=== PATIENT | male | born 1955 | race Caucasian/White ===

== ENCOUNTER → 2018-09-09 | Outpatient (CLI) | payer OTHER ==
[~2018-09-09] MED LIST: 8 HOUR650 MG PO; ACCUPRIL40 MG PO; ACTOS 30 MG TAB30 MG OR; ASPIR 8181 MG PO; BYSTOLIC 5 MG5 M1 PO; COLACE100 MG PO; CRESTOR10 MG OR; FERREX 150 FOR1 EAC1 PO; FISH OIL 1,001000 M2 PO; FISHOIL OR; GLIPIZIDE ER10 MG PO; GLUCOPHAGE500 MG PO; HYDROCODON-ACE1 EAC7 PO; LANTUS100 UNIT/M SUBQ; MAGOX 400400 MG PO; MIRALAX255 GM PO; MULTIVITAMINS OR; NOVOLOG FL100 UNIT/M SUBQ; PACERONE 200 M200 M1 PO; PRILOSEC OTC20 MG PO; PROTONIX40 M2 PO; SIMVASTATIN40 MG PO
--- NOTE | 2018-09-09 11:23 | EXE ---
[facility] [employer] [place] [address] STRESS ECHOCARDIOGRAM Name: WALTER MIRELES Room #: REG [facility] [id number] ������������� Admission: 09/09/18 ������������� Attend Phys: Jerson Gallo, Discharge: ��� ������������� ��� Date of : 53 Date of Service: 09/09/18 1122 �� Report #: [id number] �������� ��������������������������������������������[id number] THIS REPORT FOR: //name// APPROVED REPORT Study performed: 09/09/2018 08:18:16 Exam: Stress Echocardiogram Indication: CAD Patient Location: Out-Patient Stress Nurse: Lizzeth Oconnor RN Status: routine Ht: 6 ft 1 in HR: 59 bpm BP: 138/88 mmHg Medical History Medical History: CAD s/p CABG Medications: Listed on worksheet Allergies: No known drug allergies Cardiac Risk Factors: HTN, Hyperlipidemia, DM Previous Cardiac Procedures: CABG Procedure The patient underwent an Exercise Stress Test using the Carlito Protocol. Blood pressure, heart rate, and EKG were monitored. An Echocardiogram was performed by nuclear plant instrument technician in four stages in quad fashion. At peak stress, four selected images were obtained and placed side by side with resting images for comparison. Echo Enhancing Agent Indication: Endocardial border delineation Agent(s) / Amount(s) Used: Optison 8 cc Stress Test Details Stress Test: Exercise stress testing was performed using a Carlito protocol. HR Resting HR: 59 bpm Max Heart Rate (APMHR): 156 bpm Max HR Achieved: 136 bpm Target HR (85% APMHR): 132 bpm % of APMHR: 87 Recovery HR: 86 bpm HR response to stress: Normal HR response to stress BP [facility] [address] [place] [address] STRESS ECHOCARDIOGRAM Name: SANJANAJLWALTER ANTOINETTE Room #: REG Saravanan#: [id number] ������������� Admission: 09/09/18 ������������� Attend Phys: Jerson Gallo, Discharge: ��� ������������� ��� Date of : 53 Date of Service: 09/09/18 1122 �� Report #: [id number] �������� ��������������������������������������������[id number] Resting BP: 138/88 mmHg Max BP: 190/94 mmHg Recovery BP: 186/84 mmHg BP response to stress: Normal blood pressure response to stress. ECG Clinical Reason for Termination: Maximal effort Stress Symptoms: Leg Fatigue, Dyspnea Exercise duration: 9 min 37 sec Highest Stage Achieved: Stage 3: 3.4 mph at 14% grade. Exercise capacity: 11.80 METs Pre-Stress Echo The resting Echocardiogram showed normal left ventricular contractility with an estimated Ejection Fraction of about 50-55%. No significant valvular abnormalities noted. Post-Stress Echo The stress Echocardiogram showed normal left ventricular contractility with an estimated Ejection Fraction of about 55-60%. Conclusion Clinical Response: Non-ischemic Exercise Capacity: Average Stress ECG Response: Non-ischemic Stress Echo Images: Non-ischemic Other Information Study Quality: Fair Technically limited study due to body habitus. ��������������������������������������������� <ELECTRONICALLY SIGNED> ���������������������������������������� By: Jerson Gallo MD, [facility] ��������������������������������������������� 09/09/18 1122 112 112 Jerson Gallo MD, [facility]INF
== END ==
LOC: CV 06:08
DX: I25.810 Atherosclerosis of coronary artery bypass graft(s) without angina pectoris (principal); Z95.1 Presence of aortocoronary bypass graft; Z82.49 Family history of ischemic heart disease and other diseases of the circulatory system

== ENCOUNTER → 2020-07-18 | Outpatient (CLI) | payer OTHER, MEDICARE | LOC: SJCVCIMAG 09:45 | PROVIDERS: ATTEND Internal Medicine Cardiovascular Disease | DX: I25.10 Atherosclerotic heart disease of native coronary artery without angina pectoris (principal); I12.9 Hypertensive chronic kidney disease with stage 1 through stage 4 chronic kidney disease, or unspecified chronic kidney disease; E11.22 Type 2 diabetes mellitus with diabetic chronic kidney disease; N18.2 Chronic kidney disease, stage 2 (mild); E78.5 Hyperlipidemia, unspecified; E78.00 Pure hypercholesterolemia, unspecified; Z95.1 Presence of aortocoronary bypass graft; Z79.899 Other long term (current) drug therapy; Z79.4 Long term (current) use of insulin; Z87.891 Personal history of nicotine dependence; Z72.89 Other problems related to lifestyle; Z88.8 Allergy status to other drugs, medicaments and biological substances ==

== ENCOUNTER → 2021-03-17 | Outpatient (CLI) | payer OTHER, MEDICARE | LOC: SJCVC 13:20 | PROVIDERS: ATTEND Internal Medicine Cardiovascular Disease | DX: R00.1 Bradycardia, unspecified (principal); I25.10 Atherosclerotic heart disease of native coronary artery without angina pectoris; Z95.1 Presence of aortocoronary bypass graft; I10 Essential (primary) hypertension; E78.00 Pure hypercholesterolemia, unspecified; N18.6 End stage renal disease; Z99.2 Dependence on renal dialysis; E11.22 Type 2 diabetes mellitus with diabetic chronic kidney disease; Z79.82 Long term (current) use of aspirin; Z79.899 Other long term (current) drug therapy; Z82.49 Family history of ischemic heart disease and other diseases of the circulatory system; F17.210 Nicotine dependence, cigarettes, uncomplicated; Z72.89 Other problems related to lifestyle; Z88.8 Allergy status to other drugs, medicaments and biological substances ==